=== PATIENT | male | born 1935 | race Caucasian/White ===

== ENCOUNTER 2016-04-03 21:53 | Observation (INO) | payer OTHER, MEDICARE ==
[~2016-04-03] VITALS: Ht 177.8 cm; Wt 74.8 kg
[~2016-04-03 21:53] MED LIST: ARTHRITIS PAI42.5 GM TP; LEVOTHYROXINE25 MCG PO; LISINOPRIL-HCT1 EACH PO; LOPRESSOR100 MG PO; NEURONTIN 300300 MG PO; OMEPRAZOLE20 MG PO; SIMVASTATIN80 MG PO; TERAZOSIN HCL2 MG PO; VITAMIN B-121000 MC3 PO
[2016-04-03 22:31] LABS: HEMOGLOBIN 13.7 gm/dl (14.0-17.5); RED BLOOD COUNT 4.35 M/UL (4.20-5.50); WHITE BLOOD COUNT 6.8 K/UL (4.5-11.0)
[2016-04-03 22:49] LABS: BUN/CREATININE RATIO 12 (0-10)
[2016-04-04 04:38] LABS: HEMOGLOBIN 11.9 gm/dl (14.0-17.5); WHITE BLOOD COUNT 6.1 K/UL (4.5-11.0)
[2016-04-04 04:43] LABS: RED BLOOD COUNT 3.84 M/UL (4.20-5.50)
[2016-04-04 05:01] LABS: BUN/CREATININE RATIO 13 (0-10)
[2016-04-04] MEDS ORDERED: ADULT LOW DOSE81 MG PO (15:39)
[2016-04-04] MEDS ORDERED: IMDUR ER TAB 3030 MG PO (15:39)
== END 2016-04-04 17:23 | disposition home or self-care (01) ==
LOC: ER1 21:53 → ZEROF 23:59 → M/S 23:59 → ZEROF 23:59 → M/S 04-04 14:15
PROVIDERS: Family Medicine; Student in an Organized Health Care Education/Training Program; ADMIT Internal Medicine
DX: R07.9 Chest pain, unspecified (principal); M25.512 Pain in left shoulder; I25.10 Atherosclerotic heart disease of native coronary artery without angina pectoris; I10 Essential (primary) hypertension; E78.5 Hyperlipidemia, unspecified; E03.9 Hypothyroidism, unspecified; Z98.61 Coronary angioplasty status; Z79.82 Long term (current) use of aspirin; Z79.899 Other long term (current) drug therapy; Z90.49 Acquired absence of other specified parts of digestive tract
CPT/HCPCS: ECHO; 36415; 71010; 73030; 78452; 80053; 80061; 82550; 82553; 83036; 83874; 84439; 84443; 84484; 85025; 93005; 93017; 93306; 99285; A9502; G0378; J2785